=== PATIENT | male | born 1985 | race Caucasian/White ===

== ENCOUNTER 2018-02-22 20:36 | Emergency (ER) | payer BC ==
--- NOTE | 2018-02-22 21:07 | ERPHSYRPT ---
- History of Present Illness Time Seen by Provider: 02/22/18 21:05 Source: patient Exam Limitations: clinical condition Patient Subjective Stated Complaint: Left ankle pain and swelling after grate fell on ankle at 0400. Swelling noted to medial portion of ankle. No distress noted. Skin PWD. Triage Nursing Assessment: Pt presents to the ED with complaints of swelling to left ankle. Pt states pain is worse with movement, states pain improved with rest. No distress noted, skin PWD. Physician History: PATIENT DROPPED A 100 POUND PIECE OF METAL GRATE ONTO LEFT ANKLE YESTERDAY ASSOCIATED WITH PAIN, SWELLING AND BRUISING. HAS PAIN UPON WEIGHT BEARING. Method of Injury: direct blow Occurred: yesterday Quality: constant Severity of Pain-Max: moderate Severity of Pain-Current: moderate Lower Extremities Pain: ankle: left Modifying Factors: Improves With: movement (WEIGHT BEARING) Associated Symptoms: unable to bear weight Allergies/Adverse Reactions: No Known Drug Allergies Allergy (Unverified 02/22/18 21:03) Home Medications: No Reportable Medications [No Reported Medications] 02/22/18 [History] Hx Tetanus, Diphtheria Vaccination/Date Given: No Hx Influenza Vaccination/Date Given: No Hx Pneumococcal Vaccination/Date Given: No Immunizations Up to Date: No - Past Medical History Pertinent Past Medical History: Yes Neurological History: No Pertinent History ENT History: No Pertinent History Cardiac History: No Pertinent History Respiratory History: Bronchitis Endocrine Medical History: No Pertinent History Musculoskeletal History: No Pertinent History GI Medical History: No Pertinent History History: No Pertinent History Psycho-Social History: No Pertinent History Male Reproductive Disorders: No Pertinent History - Past Surgical History Past Surgical History: No Neuro Surgical History: No Pertinent History Cardiac: No Pertinent History Respiratory: No Pertinent History Gastrointestinal: No Pertinent History Genitourinary: No Pertinent History Musculoskeletal: No Pertinent History Male Surgical History: No Pertinent History - Social History Smoking Status: Current every day smoker How long have you smoked: 22 years Exposure to second hand smoke: Yes Drug Use: none Patient Lives Alone: No - Nursing Vital Signs Nursing Vital Signs: Initial Vital Signs Temperature 97.5 F 02/22/18 20:57 Pulse Rate 82 02/22/18 20:57 Respiratory Rate 16 02/22/18 20:57 Blood Pressure 126/66 02/22/18 20:57 O2 Sat by Pulse Oximetry 97 02/22/18 20:57 Pain Scale Pain Intensity 3 - Physical Exam SpO2: 97 Oxygen Delivery: Room Air - Radiology Exams Left Ankle X-ray Interpretation: Interpreted by me, No Fracture (THERE IS SOFT TISSUE SWELLING MEDIAL MALLEOLUS, NO FRACTURE) Left Foot X-ray Interpretation: Interpreted by me (NONDISPLACED FRACTURE LEFT CUNEIFORM BONE) Ordered Tests: Active Orders 24 hr Category Date Time Status ANKLE (3 VIEWS) Stat Exams 02/22/18 21:02 Taken FOOT (MINIMUM 3 VIEWS) Stat Exams 02/22/18 21:03 Taken Medication Summary Discontinued Medications Generic Name Dose Route Start Last Admin Trade Name Ferny PRN Reason Stop Dose Admin Ibuprofen 600 mg 02/22/18 21:42 02/22/18 21:44 Motrin 600 Mg PO 02/22/18 21:43 600 mg STAT ONE Administration Ibuprofen Confirm 02/22/18 21:43 Motrin 600 Mg Administered 02/22/18 21:44 Dose 600 mg .ROUTE .STK-MED ONE - Progress Progress Note: 02/22/18 21:51 SHORT LEFT LEG ORTHOGLASS SPLINT, CRUTCHES, ADMINISTERED MOTRIN 600MG ORALLY, PATIENT REFUSED ANALGESICS 02/22/18 21:52 02/22/18 22:52 Counseled pt/family regarding: diagnosis, need for follow-up, rad results - Departure Time of Disposition: 22:58 Departure Disposition: Home Clinical Impression: LEFT ANKLE CONTUSION/STRAIN Condition: Stable Critical Care Time: No Referrals: DOCTOR,NO FAMILY [Primary Care Provider] - Additional Instructions: MAINTAIN LEFT ANKLE SPLINT FOR 5 DAYS THEN REMOVE. ELEVATE LEFT FOOT WHILE SUPINE OR SITTING POSITION. APPLY ICE OVER ANKLE SWELLING EVERY 4 HOURS, 30 MINUTES FOR 48 HOURS. AMBULATE USING CRUTCHES NONWEIGHT BEARING LEFT FOOT FOR 5 DAYS. TYLENOL OR MOTRIN NEEDED FOR PAIN. CONSULT YOUR PRIMARY CARE PROVIDER FOR FOLLOWUP IN 1 WEEK.
[2018-02-22] MEDS ORDERED: MOTRIN 600 MG PO ONE (21:42)
[2018-02-22] MEDS ORDERED: MOTRIN 600 MG ONE (21:43)
[2018-02-22 23:19] VITALS: BP 122/75; PULSE 75; O2SAT 98
--- NOTE | 2018-02-23 08:49 | XRAY ---
Indication: Pain following injury. Comparison: None 3 views of the left ankle demonstrates medial soft tissue swelling. No other bony, articular, or soft tissue abnormalities. Comment: Preliminary interpretation was made by [facility]. No discrepancy.
--- NOTE | 2018-02-23 08:50 | XRAY ---
Indication: Pain following injury. Comparison: None 3 nonweightbearing views of the left foot demonstrates medial ankle soft tissue swelling. No other bony, articular, or soft tissue abnormalities. Comment: Preliminary interpretation was made by [facility]. No critical discrepancy.
== END 2018-02-22 23:19 | disposition home or self-care (01) ==
LOC: ED 20:36
PROC: 2W3RX1Z Immobilization of Left Lower Leg using Splint (ICD-10-PCS; principal; 2018-02-22)
DX: S90.02XA Contusion of left ankle, initial encounter (principal); S96.912A Strain of unspecified muscle and tendon at ankle and foot level, left foot, initial encounter; W20.8XXA Other cause of strike by thrown, projected or falling object, initial encounter
CPT/HCPCS: 29515; 73610; 73630; 99284; A9270-GY